=== PATIENT | female | born 1960 | race Caucasian/White ===

== ENCOUNTER 2022-01-03 07:30 | Emergency (ER) | payer SELFPAY ==
[2022-01-03] VITALS (8 sets, daily range): BP systolic 127–155; BP diastolic 63–79; PULSE 50–79; RESP 16–20; TEMP 36.3; O2SAT 95–98
[2022-01-03] MEDS: ONDANSETRON INJ 4 MG/2 ML VIAL IV PUSH (08:08)
[2022-01-03] MEDS: SODIUM CHLORIDE 0.9% IV 1,000 ML 999 ML IV CONT (08:08)
[2022-01-03] MEDS: MECLIZINE HCL 25 MG TABLET PO (08:08)
[2022-01-03 08:28] LABS: Influenza A QL RT-PCR Negative (Negative); Influenza B QL RT-PCR Negative (Negative); SARS-CoV-2 RNA PCR Negative
[2022-01-03 09:15] LABS: Appearance Urine Clear (Clear); Basophils Percent Auto 0.6 % (0.2-1.2); Bilirubin Urine 1+ (Negative); Blood Urine Negative (Negative); Color Urine Yellow (Yellow); Glucose Urine UA Negative (Negative); Hematocrit 39.3 % (37.0-47.0); Hemoglobin 12.7 g/dL (12.0-15.0); Immature Granulocyte Absolute 0.02 K/mm3 (0.00-0.031); Immature Granulocyte Percent A 0.4 % (0-0.5); Ketones Urine 3+ mg/dL (Negative); Leukocyte Esterase Ur Negative LEU/UL (Negative); Lymphocytes Absolute Auto 0.86 K/mm3 (0.9-3.2); Lymphocytes Percent Auto 16.6 % (18.3-44.2); Mean Corpuscular HGB Conc 32.3 g/dl (32-36); Mean Corpuscular Hemoglobin 32.6 pg (26-34); Mean Corpuscular Volume 100.8 fl (80-100); Mean Platelet Volume 9.9 fl (7.4-10.4); Monocytes Absolute Auto 0.3 K/mm3 (0.1-0.6); Monocytes Percent Auto 6.4 % (2.6-8.5); Nitrate Urine Negative (Negative); Platelet Count Result 200 k/mm3 (150-375); Protein Urine Trace mg/dL (Negative); Red Cell Distribution Width 12.8 % (11.5-14.5); Urobilinogen Urine 0.2 mg/dL (<2.0); White Blood Count 5.2 K/mm3 (4.5-10.0)
[2022-01-03 09:24] LABS: Anion Gap 6 mmol/L (8-16); Blood Urea Nitrogen 17 mg/dL (7-17); Calcium 8.8 mg/dL (8.4-10.2); Carbon Dioxide 26 mmol/L (22-30); Chloride 109 mmol/L (98-107); Estimated CRCL calculation 55 ml/min; Estimated Glomerular Filt Rate > 60; Glucose 105 mg/dL (65-110); Potassium 4.2 mmol/L (3.4-5.0); Sodium 141 mmol/L (137-145)
[2022-01-03 09:42] LABS: Mucus Urine Rare /lpf; WBC Urine 0-3 /hpf
[2022-01-03 10:18] LABS: Add Urine Microscopic? YES
--- NOTE | 2022-01-03 10:19 | PC.NURSE ---
PT FEELING BETTER AFTER FLUIDS AND ZOFRAN. ABLE TO AMBULATE TO BATHROOM
--- NOTE | 2022-01-03 10:50 | PC.NURSE ---
patient ambulated with a steady gait however she reports feeling a little dizzy
--- NOTE | 2022-01-03 11:51 | ED.DIZZY ---
HPI - Dizziness General Chief Complaint: Dizziness Stated Complaint: myalgias, clammy, dizzy Time Seen by Provider: 01/03/22 07:35 History of Present Illness HPI Narrative: Patient is a 7-year-old female who presents with dizziness. Ongoing for last couple days but much worse today. Feels sweaty and nauseous. Any type of movement makes her want dry heaves. She has had some congestion and ear pressure as well. No focal weakness or numbness in arm or leg. Has found no modifying factors at home other than sitting still. Related Data Allergies Allergy/AdvReac Type Severity Reaction Status Date / Time cyclobenzaprine AdvReac Mild I get Verified 01/03/22 07:59 very angry ibuprofen AdvReac Mild stomach Verified 01/03/22 07:59 upset Review of Systems Review of Systems: All systems reviewed & are unremarkable except as noted in HPI and below Constitutional: Constitutional: Denies chills, Denies fatigue and Denies fever(s) ENT: Reports dizziness, Reports nasal congestion and Denies sore throat Cardiovascular: Cardiovascular: Denies chest pain, Denies rapid heart rate and Denies radiating jaw, neck or arm pain Respiratory: Respiratory: Denies cough and Denies dyspnea Gastrointestinal: Gastrointestinal: Denies abdominal pain, Denies diarrhea, Reports nausea and Reports vomiting Neurologic: Denies headache(s), Denies focal weakness and Denies numbness PMFSH Past Medical History Medical History (Updated 01/03/22 @ 19:09 by Kb Casillas MD) Carpal tunnel syndrome Depression Social History Social History (Updated 01/03/22 @ 19:09 by Kb Casillas MD) Smoking status: Current every day smoker Exam Narrative: GENERAL: Well-appearing, well-nourished, and in no acute distress. HEAD: Normocephalic, atraumatic. EYES: PERRL and EOMI. no nystagmus. ENT: Mucous membranes moist. Ears pop with some manipulation of eustachian tube. CHEST: Clear to auscultation. No respiratory distress. HEART: Regular rate and rhythm. Normal peripheral pulses. ABDOMEN: Soft, nontender, nondistended. EXTREMITIES: Normal range of motion. No edema. SKIN: Warm, dry, no rash. NEURO: Alert and oriented x3. PSYCH: Normal mood and affect. Course Course Emergency Course: Patient feels markedly improved with meclizine and fluids. Discharge home with supportive therapy. Vital Signs Vital signs: Vital Signs Temperature 97.4 F L 01/03/22 07:37 Pulse Rate 72 01/03/22 07:37 Respiratory Rate 18 01/03/22 07:37 Blood Pressure 155/69 H 01/03/22 07:37 Pulse Oximetry 96 01/03/22 07:37 Temperature 97.4 F L 01/03/22 07:37 Pulse Rate 79 01/03/22 12:00 Respiratory Rate 18 01/03/22 12:00 Blood Pressure 127/79 01/03/22 12:00 Pulse Oximetry 95 01/03/22 12:00 MDM - Dizziness Lab Data Result diagrams: 01/03/22 09:07 01/03/22 09:07 Labs: Lab Results 01/03/22 01/03/22 01/03/22 Range/Units 07:44 09:07 09:07 WBC 5.2 (4.5-10.0) K/mm3 RBC 3.90 L (4.2-5.4) M/mm3 Hgb 12.7 (12.0-15.0) g/dL Hct 39.3 (37.0-47.0) % MCV 100.8 H (80-100) fl MCH 32.6 (26-34) pg MCHC 32.3 (32-36) g/dl RDW 12.8 (11.5-14.5) % Plt Count 200 (150-375) k/mm3 MPV 9.9 (7.4-10.4) fl Immature Gran % (Auto) 0.4 (0-0.5) % Neut % (Auto) 76.0 H (45.5-73.1) % Lymph % (Auto) 16.6 L (18.3-44.2) % [place] % (Auto) 6.4 (2.6-8.5) % Eos % (Auto) 0.0 (0-4.4) % Baso % (Auto) 0.6 (0.2-1.2) % Lymph # (Auto) 0.86 L (0.9-3.2) K/mm3 [place] # (Auto) 0.3 (0.1-0.6) K/mm3 Eos # (Auto) 0.0 (0-0.3) K/mm3 Baso # (Auto) 0.0 (0.0-0.1) K/mm3 Abs Immat Gran (auto) 0.02 (0.00-0.031) K/mm3 Absolute Neuts (auto) 4.0 (1.3-6.7) K/mm3 Absolute Nucleated RBC 0.0 (0.0-0.012) K/mm3 Nucleated RBC % 0.0 (0.0-0.2) % Sodium (137-145) mmol/L Potassium (3.4-5.0) mmol/L Chloride (98-107) mmol/L Carbon Dioxi
== END 2022-01-03 12:12 | disposition home or self-care (01) ==
PROVIDERS: Emergency Provider Emergency Medicine
DX: R42 Dizziness and giddiness (principal); Z20.822 Contact with and (suspected) exposure to COVID-19; F17.200 Nicotine dependence, unspecified, uncomplicated
CPT/HCPCS: 36415; 80048; 81001; 85025; 87636; 99283; A9270; J2405; J7030

== ENCOUNTER 2024-06-19 14:05 | Outpatient (CLI) | payer OTHER, SELFPAY ==
--- NOTE | ~2024-06-19 | MM_ITS ---
EXAMINATION: MM screening markos BI w karina HISTORY: Screening TECHNIQUE: Craniocaudal and mediolateral oblique 3-D tomosynthesis images were obtained and synthetic 2-D images were generated. CAD analysis was submitted and interpreted. COMPARISON: Comparison to multiple prior studies sequentially, with oldest reviewed study dated 12/12. BREAST PARENCHYMAL COMPOSITION: Not dense: There are scattered areas of fibroglandular density. FINDINGS: There is no evidence of suspicious mass, calcification, or architectural distortion to sugg est malignancy in either breast. There has been no suspicious interval change. IMPRESSION: 1. No mammographic evidence of malignancy. 2. Recommend routine screening mammography in one year. BI-RADS Category 1: Negative Reviewed, dictated and finalized at location A.
== END 2024-06-19 14:06 | disposition home or self-care (01) ==
LOC: MICIMG 14:09
PROVIDERS: PCP Student in an Organized Health Care Education/Training Program; Visit Provider Student in an Organized Health Care Education/Training Program
DX: Z12.31 Encounter for screening mammogram for malignant neoplasm of breast (principal)
CPT/HCPCS: 77063; 77067

== ENCOUNTER 2024-10-28 11:13 | Emergency (ER) | payer SELFPAY ==
--- NOTE | ~2024-10-28 | CT_ITS ---
CT abdomen pelvis w con Clinical History: Generalized abdominal pain . Comparison: None Technique: Axial images lung bases to symphysis pubis IV contrast information not listed in PACS Coronal, sagittal reformats CT images acquired with automatic exposure control for dose reduction DLP: 324 mGy-cm Findings: Lung bases: Mild dependent changes. Visualized heart and pericardium: Unremarkable. Liver: Intra and extrahepatic biliary ductal dilatation. Gallbladder: Unremarkable. Spleen: Unremarkable. Pancreas: Question divisum. Central ductal dilatation. Adrenal glands: Unremarkable. Kidneys: Right kidney- No hydronephrosis. No renal stones. Left kidney- No hydronephrosis. No renal stones. Distal esophagus/stomach: Gastric wall thickening. Small bowel loops: Normal caliber and wall thickness. Colon: Diffuse wall thickening. Normal RLQ appendix. Nodes: No enlarged nodes. Peritoneum: No ascites. No free air. Urinary bladder: Unremarkable. Uterus: Retroflexed. Adnexa: No masses. Bones: No acute bony abnormality. Soft tissues: Unremarkable. Aorta: No aneurysm or dissection. Aortoiliac atherosclerotic disease IVC: Unremarkable. Main portal vein/SMV/splenic vein: Patent. IMPRESSION: 1. Colitis. Gastritis. Combination suggests inflammatory bowel disease. 2. Intra and extrahepatic biliary ductal dilatation, possibly due to pancreatic divisum. Consider MRCP. Reviewed, dictated and finalized at location R. IMPRESSION: 1. Colitis. Gastritis. Combination suggests inflammatory bowel disease. 2. Intra and extrahepatic biliary ductal dilatation, possibly due to pancreati c divisum. Consider MRCP.
--- OUTSIDE RECORDS SUMMARY | 2024-10-28 10:00 | XMS_ITS | Encounter Summary ---
Author Organization [facility] Healthcare Address [address] [place] [address] Care Team Providers Care Steel Chipper Name Role Phone Unknown, Notinfile Primary Care Provider Unavail able Reason for Visit * Reason Comments Fever Chills stomach issues Symptoms for three d ays. Has noticed some blood in stool. Took a little immodium and drinking pedialyte and water. 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 Gender Identity Not on file Sexual Orientation Not on file documented as of this encounter Last Filed Vital Signs Vital Sign Reading Time Taken Comments Blood Pressure 115/72 10/28/2024 10:26 AM CDT Pulse 82 10/28/2024 10:26 AM CDT Temperature 36.7 C (98.1 F) 10/28/2024 10:26 AM CDT Respiratory Rate 20 10/28/2024 10:26 AM CDT Oxygen Saturation 95% 10/28/2024 10:26 AM CDT Inhaled Oxygen Concentration - - Weight - - Height - - Body Mass Index - - documented in this encounter Patient Instructions * Patient Instructions* Britney Cheung NP - 10/28/2024 10:00 AM CDT Please proceed to the ED for further evaluation of rectal bleeding, left lower quadrant abdominal pain, diarrhea, chills, subjective fever x3 days. Patient is guarding upon exam and is significantly tender in the left lower quadrant, concern for intra-abdominal etiology/possible diverticulitis. Patient's rapid COVID and flu were negative in office. Patient has no urinary symptoms. Has no history of abdominal surgery. documented in this encounter Plan of Treatment Not on file documented as of this encounter Procedures Procedure Name Priority Date/Time Associated Diagnosis Comments POC INFLUENZA A/B, COVID-19 ANTIGEN Routine 10/28/2024 10:52 AM CDT Diarrhea, unspecified type documented in this encounter Results * POC Influenza A/B, COVID-19 antigen (10/28/2024 10:52 AM CDT) Influenza A Ag, POC Negative Negative [facility] Influenza B Ag, POC Negative Negative [facility] COVID-19 Ag POC Presumptive Negative Presumptive Negative, Invalid [facility] Nasal 10/28/2024 10:5 2 AM CDT Britney Cheung NP POINT OF CARE TEST ORDERAB LES Final Result [facility] [address] documented in this encounter Visit Diagnoses Diagnosis Diarrhea, unspecified type- Primary Blood in stool Abdominal pain, acute, left lower quadrant documented in this encounter Care Teams Steel Chipper Relationship Specialty Start Date End Date Unknown, Notinfile PCP - General 10/28/24 documented as of this encounter
[2024-10-28 11:45] VITALS: BP 123/75; PULSE 68; RESP 18; TEMP 37.1; O2SAT 99
[2024-10-28 11:50] LABS: Hematocrit 37.0 % (37.0-47.0); Hemoglobin 12.1 g/dL (12.0-15.0); Immature Granulocyte Percent A 0.3 % (0-0.5); Lymphocytes Absolute Auto 0.79 K/mm3 (0.9-3.2); Mean Corpuscular HGB Conc 32.7 g/dl (32-36); Mean Corpuscular Hemoglobin 32.3 pg (26-34); Mean Corpuscular Volume 98.7 fl (80-100); Nucleated Red Blood Cells Absolute Auto 0.000 K/mm3 (0.0-0.012); Nucleated Red Blood Cells Perc 0.0 % (0.0-0.2); Platelet Count Result 187 k/mm3 (150-375); Red Blood Count 3.75 M/mm3 (4.2-5.4); White Blood Count 9.5 K/mm3 (4.5-10.0)
--- OUTSIDE RECORDS SUMMARY | 2024-10-28 12:01 | XMS_ITS | Clinical Summary ---
Author Organization [facility] [address] [address] Care Team Providers Care Queen Producer Name Role Phone Unknown, Notinfile Primary Care Provider Unavail able Allergies No known active allergies Medications No known medications Active Problems No known active problems Encounters Date Type Department Care Team Description 10/28/2024 10:00 AM CDT Office Visit [facility] at [address] [address] Britney Cheung NP Diarrhea, unspecified type (Primary Dx); Blood in stool; Abdominal pain, acute, left lower quadrant from Last 3 Months Social History Tobacco Use Types Packs/Day Years Used Date Smoking Tobacco: Never Assessed Comments Unknown Sex and Gender Information Value Date Recorded Sex Assigned at Not on file 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[employer] Gender Identity Not on file Sexual Orientation Not on file Last Filed Vital Signs Vital Sign Reading Time Taken Comments Blood Pressure 115/72 10/28/2024 10:26 AM CDT Pulse 82 10/28/2024 10:26 AM CDT Temperature 36.7 C (98.1 F) 10/28/2024 10:26 AM CDT Respiratory Rate 20 10/28/2024 10:26 AM CDT Oxygen Saturation 95% 10/28/2024 10:26 AM CDT Inhaled Oxygen Concentration - - Weight - - Height - - Body Mass Index - - Plan of Treatment Health Maintenance Due Date Last Done Comments Breast Cancer Screening-Mammogram 1961 Cervical Cancer Screening 1961 Colon Cancer Screening-Colonoscopy 1961 Depression Screening 1961 Hepatitis C Screening 1961 DTaP/Tdap/Td Vaccine (1 - Tdap) 1972 Hepatitis B Screening 10/04/1979 Regular Well Visit/Exam 18-64 10/04/1979 Zoster Vaccine (1 of 2) 10/04/2011 Influenza Vaccine (#1) 2024 , 11/20/2022, 11/16/2018, Additional history exists Covid-19 Vaccine Completed 12/11/2023, , 04/21/2020, Additional history exists Pneumococcal vaccine <65 Aged Out No longer eligible based on patient's age to complete this topic Procedures Procedure Name Priority Date/Time Associated Diagnosis Comments POC INFLUENZA A/B, COVID-19 ANTIGEN Routine 10/28/2024 10:52 AM CDT Diarrhea, unspecified type from Last 3 Months Results * POC Influenza A/B, COVID-19 antigen (10/28/2024 10:52 AM CDT) Influenza A Ag, POC Negative Negative [facility] Influenza B Ag, POC Negative Negative [facility] COVID-19 Ag POC Presumptive Negative Presumptive Negative, Invalid [facility] Nasal 10/28/2024 10:5 2 AM CDT us Britney Cheung NP POINT OF CARE TEST ORDERAB LES Final Result [facility] [address] [place] [address], [facility] from Last 3 Months Care Teams Queen Producer Relationship Specialty Start Date End Date Unknown, Notinfile PCP - General 10/28/24
--- NOTE | 2024-10-28 12:10 | ED.ABDPAIN ---
HPI - Abdominal Pain General Chief Complaint: Abdominal Pain Stated Complaint: n/v/d, abd pain Time Seen by Provider: 10/28/24 12:08 Source: patient Mode of arrival: ambulatory Limitations: no limitations History of Present Illness HPI narrative: 61 years old white female came to the ED with massive diarrhea 3 days ago, slow down significantly the day after, today had only 1 bowel movement. Patient reports diffuse lower abdominal pain. She denies any fever chills nausea vomiting or history of abdominal surgery. History of hyperlipidemia. Patient smokes cigarettes, uses marijuana daily, does not drink alcohol Related Data Allergies Allergy/AdvReac Type Severity Reaction Status Date / Time No Known Allergies Allergy Verified 10/28/24 11:40 Review of Systems Review of Systems: All systems reviewed & are unremarkable except as noted in HPI and below PMFSH Past Medical History Medical History Depression Carpal tunnel syndrome Social History Social History Smoking status: Current every day smoker Exam Narrative: General appearance: Well-developed, well-nourished Skin: Normal color Head: Normocephalic, nontraumatic Eyes: Clear conjunctiva ENT: Oropharynx normal, ears normal, nose normal Neck: Supple, nontender Chest and respiratory: Airway patent, no respiratory distress, no accessory muscle use Heart: Regular rate/rhythm Abdomen: Soft, mild diffuse tenderness across the lower abdomen, no organomegaly, quiet bowel sounds Vascular: Normal peripheral pulses, normal capillary refill. 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 Mast Outpatient follow-up Date: 10/28/24 Time: 14:04 Vital Signs Vital signs: Vital Signs Temperature 37.1 C 10/28/24 11:45 Pulse Rate 68 10/28/24 11:45 Respiratory Rate 18 10/28/24 11:45 Blood Pressure 123/75 10/28/24 11:45 Pulse Oximetry 99 10/28/24 11:45 Oxygen Delivery Room Air 10/28/24 11:45 Temperature 37.1 C 10/28/24 11:45 Pulse Rate 68 10/28/24 13:53 Respiratory Rate 16 10/28/24 13:53 Blood Pressure 137/67 10/28/24 13:53 Pulse Oximetry 98 10/28/24 13:53 Oxygen Delivery Room Air 10/28/24 11:45 MDM - Abdominal Pain MDM Narrative Medical decision making narrative: Patient came with diarrhea, improving, lower abdominal pain is still there Vital signs are stable Physical examination showing slight tenderness across the lower abdomen Differential diagnosis unspecified diarrhea, colitis, enteritis, diverticulitis. Blood workup today includes CBC, CMP, lipase showed no significant abnormality Urinalysis showed no evidence of infection CT abdomen and pelvis with IV contrast showed colitis, gastritis combinations suggest inflammatory bowel disease. Intra and extrahepatic biliary ductal dilatation possibly due to pancreatic divisum Diagnosis diarrhea, abdominal pain, inflammatory bowel disease-suspected, questionable pancreatic divisum Follow-up with advice clerk/family physician for further evaluation. No further evaluation is needed at this time, patient diarrhea is improving and lower abdominal pain/cramps Discharged home discussed with Dr. Mast Differential Diagnosis Differential diagnosis: Likely other (As above) Medical Records Attestation: I reviewed the patient's medical records. Lab Data Attestation: I reviewed the patient's lab results. 10/28/24 11:42 10/28/24 11:42 Labs: Lab Results 10/28/24 10/28/24 Range/Units 11:42 11:49 WBC 9.5 (4.5-10.0) K/mm3 RBC 3.75 L (4.2-5.4) M/mm3 Hgb 12.1 (12.0-15.0) g/dL Hct 37.0 (37.0-47.0) % MCV 98.7 (80-100) fl MCH 32.3 (26-34) pg MCHC 32.7 (32-36) g/dl RDW 12.8 (11.5-14.5) % Plt Count 187 (150-375) k/mm3 MPV 10.0 (7.4-10.4) fl Immature Gran % (Auto) 0.3 (0-0.5) % Neut % (Auto) 86.0 H (45.5-73.1) % Lymph % (Auto) 8.3 L (18.3-44.2) % [place] % (Auto) 5.0 (2.6-8.5) % Eos % (Auto) 0.2 (0-4.4) % Baso % (Auto) 0.2 (0.2-1.2) % Lymph # (Auto) 0.79 L (0.9-3.2) K/mm3 [place] # (Auto) 0.5 (0.1-0.6) K/mm3 Eos # (Auto) 0.0 (0-0.3) K/mm3 Baso # (Auto) 0.0 (0.0-0.1) K/mm3 Abs Immat Gran (auto) 0.03 (0.00-0.031) K/mm3 Absolute Neuts (auto) 8.2 H (1.3-6.7) K/mm3 Absolute Nucleated RBC 0.000 (0.0-0.012) K/mm3 Nucleated RBC % 0.0 (0.0-0.2) % Sodium 137 (137-145) mmol/L Potassium 4.0 (3.4-5.0) mmol/L Chloride 104 (98-107) mmol/L Carbon Dioxide 28 (22-30) mmol/L Anion Gap 5 (4-12) mmol/L BUN 9 D (7-17) mg/dL Creatinine 0.81 (0.7-1.0) mg/dL Estim Creat Clear Calc 58 ml/min Estimated GFR > 60 (59 - ) Glucose 120 H (65-110) mg/dL Calcium 9.8 (8.4-10.2) mg/dL Total Bilirubin 0.5 (0.2-1.3) mg/dL AST 33 (14-36) U/L ALT 19 (6-35) U/L Alkaline Phosphatase 74 (38-126) U/L Total Protein 7.2 (6.3-8.2) g/dL Albumin 4.1 (3.5-5.1) g/dL Lipase 70 (23-300) U/L Urine Color Dark yellow (Yellow) Urine Appearance Clear (Clear) Urine pH 6.0 (5.0-9.0) Ur Specific [place] 1.022 (1.001-1.035) Urine Protein 1+ H (Negative) mg/dL Urine Glucose (UA) Negative (Negative) mg/dL Urine Ketones Trace H (Negative) mg/dL Ur Blood (Man) Negative (Negative) Urine Nitrate Negative (Negative) Urine Bilirubin Negative (Negative) Urine Urobilinogen 1.0 (<2.0) mg/dL Add Ur Microanalysis Reviewed Leukocyte Esterase Rfl Negative (Negative) JOCELYN/UL Urine RBC 6-10 H (0-2) /hpf Urine WBC 0-5 (0-3) /hpf Ur Squamous Epith Cells None seen (Few) /hpf Urine Bacteria Rare /hpf Urine Casts 0-2 Imaging Data Radiologist's impression: ITS Impressions Abdomen/Pelvis CT 10/28/24 13:20 IMPRESSION: 1. Colitis. Gastritis. Combination suggests inflammatory bowel disease. 2. Intra and extrahepatic biliary ductal dilatation, possibly due to pancreatic divisum. Consider MRCP. Critical Care Time Critical Care Time Critical Care Time: No Discharge Plan Discharge Clinical Impression: Diarrhea, Pancreas divisum, Inflammatory bowel disease Patient Disposition: Home Condition: Stable Instructions: Acute Diarrhea (ED), Diverticulitis Diet (ED), Colitis (ED) Additional Instructions: Return if symptoms are worsening , call your family physician for appointment, take Tylenol as as needed for aches and pain, continue home medications. Call advice clerk for further evaluation related to inflammatory bowel disease and pancreatic divisum Patient Language: Bangladeshi Prescriptions: No Action meclizine 12.5 mg tablet 12.5 mg PO TID PRN (Reason: motion sickness) Qty: 10 0RF ondansetron 4 mg tablet,disintegrating 4 mg PO Q6H PRN (Reason: nausea and vomiting) Qty: 10 0RF Follow-up/Referrals: PHYSICIAN NOT ON STAFF,NONSTAFF [Primary Care Provider] Dereje Munroe MD [Physician, Gastroenterology] - 10/29/24
[2024-10-28 12:12] LABS: Add Urine Microscopic? YES; Appearance Urine Clear (Clear); Glucose Urine UA Negative (Negative); Leukocyte Esterase Ur Negative LEU/UL (Negative); Need Manual Microscopic Reviewed; Nitrate Urine Negative (Negative); Non Pathogenic Casts 0-2; Specific Grav Ur 1.022 (1.001-1.035)
[2024-10-28 12:27] VITALS: BP 120/57; PULSE 67; RESP 15; O2SAT 95
[2024-10-28] MEDS: MORPHINE SULFATE (*CRX) 4 MG/ML INJ IV PUSH (12:31)
[2024-10-28] MEDS: SODIUM CHLORIDE 0.9% IV 1,000 ML 999 ML IV CONT (12:32)
[2024-10-28] MEDS: ONDANSETRON INJ 4 MG/2 ML VIAL IV PUSH (12:32)
[2024-10-28 12:46] LABS: Alanine Aminotransferase 19 U/L (6-35); Albumin Level 4.1 g/dL (3.5-5.1); Alkaline Phosphatase 74 U/L (38-126); Anion Gap 5 mmol/L (4-12); Aspartate Amino Transferase 33 U/L (14-36); Bilirubin,Total 0.5 mg/dL (0.2-1.3); Blood Urea Nitrogen 9 mg/dL (7-17); Calcium 9.8 mg/dL (8.4-10.2); Carbon Dioxide 28 mmol/L (22-30); Chloride 104 mmol/L (98-107); Estimated CRCL calculation 58 ml/min; Estimated Glomerular Filt Rate > 60; Glucose 120 mg/dL (65-110); Lipase 70 U/L (23-300); Potassium 4.0 mmol/L (3.4-5.0); Sodium 137 mmol/L (137-145); Total Protein 7.2 g/dL (6.3-8.2)
[2024-10-28 13:06] VITALS: BP 112/71; PULSE 65; RESP 13; O2SAT 94
[2024-10-28 13:53] VITALS: BP 137/67; PULSE 68; RESP 16; O2SAT 98
[2024-10-28 14:20] VITALS: BP 140/56; PULSE 63; RESP 18; O2SAT 97
== END 2024-10-28 14:24 | disposition home or self-care (01) ==
PROVIDERS: Emergency Medicine; Emergency Provider Emergency Medicine
DX: K58.0 Irritable bowel syndrome with diarrhea (principal); Q45.3 Other congenital malformations of pancreas and pancreatic duct; F17.210 Nicotine dependence, cigarettes, uncomplicated
CPT/HCPCS: 36415; 74177; 80053; 81001; 83690; 85025; 96361; 96374; 96375; 99284; J2270; J2405; J7030; Q9967